=== PATIENT | male | born 1995 | race Caucasian/White ===

== ENCOUNTER 2018-02-02 17:03 | Emergency (ER) | payer SELFPAY ==
[~2018-02-02] VITALS: Ht 182.9 cm; Wt 70.3 kg
[2018-02-02 17:29] VITALS: Ht 182.9 cm; Wt 70.3 kg
[2018-02-02 19:20] VITALS: BP 100/64
== END 2018-02-02 19:20 | disposition home or self-care (01) ==
LOC: ED 17:03
DX: J11.1 Influenza due to unidentified influenza virus with other respiratory manifestations (principal)

== ENCOUNTER 2018-02-18 14:02 | Emergency (ER) | payer SELFPAY ==
[~2018-02-18] VITALS: Ht 182.9 cm; Wt 70.8 kg
[2018-02-18 14:38] VITALS: Ht 182.9 cm; Wt 70.8 kg
[2018-02-18 15:58] VITALS: BP 113/66
== END 2018-02-18 15:45 | disposition home or self-care (01) ==
LOC: ED 14:02
DX: R19.7 Diarrhea, unspecified (principal); R10.32 Left lower quadrant pain; L40.9 Psoriasis, unspecified

== ENCOUNTER 2018-03-02 12:02 | Emergency (ER) | payer SELFPAY ==
[~2018-03-02] VITALS: Ht 185.4 cm; Wt 72.2 kg
[2018-03-02 14:20] VITALS: BP 117/65
== END 2018-03-02 14:20 | disposition home or self-care (01) ==
LOC: ED 12:02
DX: J06.9 Acute upper respiratory infection, unspecified (principal)
CPT/HCPCS: J1100; J1885